=== PATIENT | female | born 1975 | race Caucasian/White ===

== ENCOUNTER 2017-10-01 22:44 | Emergency (ER) | payer OTHER ==
[2017-10-01 22:56] VITALS: BP 120/83; BMI 19.3
--- NOTE | 2017-10-01 23:05 | DR.GENAD ---
HPI - PCP Primary Care Physician: NFD - Complaint/Symptoms Chief Complaint Doctors Comments: Patient presents with complaint of LUQ pain tonight worse tonight than previous days. Denies trauma Chief Complaint:: LEFT SIDE PAIN WORSE TONIGHT BUT LUMP HAS BEEN THERE BUT POKING OUT MORE TONIGHT. - Source History Provided: Patient - Mode of Arrival Mode of Arrival: Ambulatory - Timing Onset of Chief Complaint: 10/01/17 PMH - PMH Past Medical History: Yes Past Medical History Comment: HEP C Past Surgical History: Yes Past Surgical History Comment: TUBAL LIGATION - Family History History of Family Medical Conditions: Yes Family Medical History: Hypertension Family Medical History Comment: BROTHER- STROKE - Social History Does patient currently use any type of tobacco product: Yes Have you used tobacco products in the last 12 months: Yes Type of Tobacco Use: Cigarettes Does any household member use tobacco: No Alcohol Use: None Do you use any recreational Drugs:: No Lives With: Family Lives Where: Home - infectious screening In the last 2 months have you had wt loss of >10#?: NO Have you had fever, night sweats or hemotysis?: No Have you traveled outside the country in the last 6 months?: No Isolation: Standard ROS - Review of Systems Eyes: No Symptoms Reported ENTM: No Symptoms Reported Respiratoy: No Symptoms Reported Cardiovascular: No Symptoms Reported Gastrointestinal/Abdominal: No Symptoms Reported Genitourinary: No Symptoms Reported Neurological: No Symptoms Reported Musculoskeletal: No Symptoms Reported Integumentary: No Symptoms Reported Hematologic/Lymphatic: No Symptoms Reported Endocrine: No Symptoms Reported Psychiatric: No Symptoms Reported All Other Systems: Reviewed and Negative PE - Vital Signs Vitals: Temperature 98.3 F Pulse Rate 86 Respiratory Rate 20 Blood Pressure 120/83 O2 Sat by Pulse Oximetry 99 - General Limitations: No Limitations General Appearance: Alert, In No Apparent Distress - Head Head Exam: Normal Inspection, Atraumatic - Eyes Eye exam: Normal Appearance, PERRL, EOMI - ENT ENT Exam: Normal Exam External Ear Exam: Normal External Inspection TM/Canal Exam: Bilateral Normal Nose Exam: Normal Nose Exam Mouth Exam: Normal Inspection Throat Exam: Normal Inspection - Neck Neck Exam: Normal Inspection, Full ROM - Chest Chest Inspection: Normal Inspection, Symmetric Chest Wall Rise - Respiratory Respiratory Exam: Normal Lung Sounds Bilat, Accessory Muscle Use Respiratory Exam: Bilateral Clear to Auscultation - Cardiovascular Cardiovascular Exam: Regular Rate, Normal Rhythm - Abdominal Exam Abdominal Exam: Normal Inspection Abdominal Tenderness: LUQ - Extremities Extremities Exam: Normal Inspection, Full ROM - Back Back Exam: Normal Inspection, Full ROM - Neurologic Neurological Exam: Alert, Oriented X3, CN II-XII Intact - Psychiatric Psychiatric Exam: Normal Affect - Skin Skin Exam: Warm, Dry, Intact Course - Reevaluation 1st: Unchanged ROR - Labs Reviewed Result Diagrams: 10/01/17 01:00 10/01/17 01:00 Laboratory: WBC 10.7 X10^3/uL (3.6-10.0) H 10/01/17 01:00 RBC 4.40 X10^6/uL (3.5-5.4) 10/01/17 01:00 Hgb 12.8 g/dL (12.0-16.0) 10/01/17 01:00 Hct 37.7 % (36.0-47.0) 10/01/17 01:00 MCV 85.5 fL (80.0-100.0) 10/01/17 01:00 MCH 29.0 pg (27.0-34.0) 10/01/17 01:00 MCHC 33.9 g/dL (33.0-35.0) 10/01/17 01:00 RDW 14.6 % (11.6-16.5) 10/01/17 01:00 Plt Count 233 X10^3/uL (150.0-450.0) 10/01/17 01:00 MPV 7.9 fL (7.4-11.0) 10/01/17 01:00 Neut % (Auto) 64.7 % (42.0-75.0) 10/01/17 01:00 Lymph % (Auto) 27.0 % (21.0-51.0) 10/01/17 01:00 Boyle % (Auto) 5.4 % (0.0-13.0) 10/01/17 01:00 Eos % (Auto) 2.4 % (0.9-2.9) 10/01/17 01:00 Baso % (Auto) 0.5 % (0.2-1.0) 10/01/17 01:00 Neut # (Auto) 6.9 x10^3/uL (2.2-4.8) H 10/01/17 01:00 Lymph # (Auto) 2.9 X10^3/uL (1.3-2.9) 10/01/17 01:00 Boyle # (Auto) 0.6 x10^3/uL (0.3-0.8) 10/01/17 01:00 Eos # (Auto) 0.3 x10^3/uL (0.0-0.2) H 10/01/17 01:00 Baso # (Auto) 0.1 X10^3/uL (0.0-0.1) 10/01/17 01:00 Absolute Nucleated RBC 0.0 /100WBC 10/01/17 01:00 Sodium 139 mmol/L (136-145) 10/01/17 01:00 Corrected Sodium TNP 10/01/17 01:00 Potassium 4.4 mmol/L (3.5-5.1) 10/01/17 01:00 Chloride 103 mmol/L (98-107) 10/01/17 01:00 Carbon Dioxide 24.7 mmol/L (21-32) 10/01/17 01:00 BUN 13 mg/dL (7-18) 10/01/17 01:00 Creatinine 0.93 mg/dL (0.55-1.02) 10/01/17 01:00 Est GFR (MDRD) Af Amer > 60 (>60) 10/01/17 01:00 Est GFR (MDRD) Non-Af > 60 (>60) 10/01/17 01:00 Glucose 83 mg/dL (65-99) 10/01/17 01:00 Calcium 8.6 mg/dL (8.5-10.1) 10/01/17 01:00 C-Reactive Protein 1.00 mg/L (0-3.0) 10/01/17 01:00 - XRAY XRAY Interpreted by: Radiologist (CT Abd/pel: There is moderate stool in the colon, Sclerosis of the SI joints and symphysis pubis. This could reflect inflammatory anthropathy.) - Diagnosis Discharge Problem: sclerosis of the SI joint, sclerosis of symphysis pubis Constipation Qualifiers: Constipation type: slow transit constipation Qualified Code(s): K59.01 - Slow transit constipation - Discharge Plan Condition: Stable - Follow ups/Referrals Follow ups/Referrals: NFD,None [Primary Care Provider] - 3 days - Instructions
[2017-10-02 00:56] LABS: BLOOD UREA NITROGEN 13 mg/dL (7-18); CALCIUM 8.6 mg/dL (8.5-10.1); CARBON DIOXIDE 24.7 mmol/L (21-32); CHLORIDE 103 mmol/L (98-107); CREATININE 0.93 mg/dL (0.55-1.02); SODIUM 139 mmol/L (136-145); eGFR BLACK RACES > 60 (>60); eGFR NON BLACK RACES > 60 (>60)
[2017-10-02 01:06] LABS: BASOPHILS # (AUTO) 0.1 X10^3/uL (0.0-0.1); BASOPHILS % (AUTO) 0.5 % (0.2-1.0); EOSINOPHILS # (AUTO) 0.3 x10^3/uL (0.0-0.2); EOSINOPHILS % (AUTO) 2.4 % (0.9-2.9); HEMATOCRIT 37.7 % (36.0-47.0); HEMOGLOBIN 12.8 g/dL (12.0-16.0); LYMPHOCYTES # (AUTO) 2.9 X10^3/uL (1.3-2.9); MEAN CORPUSCULAR HGB CONC 33.9 g/dL (33.0-35.0); MEAN CORPUSCULAR VOLUME 85.5 fL (80.0-100.0); MEAN PLATELET VOLUME 7.9 fL (7.4-11.0); MONOCYTES # (AUTO) 0.6 x10^3/uL (0.3-0.8); MONOCYTES % (AUTO) 5.4 % (0.0-13.0); NEUTROPHILS # (AUTO) 6.9 x10^3/uL (2.2-4.8); NEUTROPHILS % (AUTO) 64.7 % (42.0-75.0); PLATELET COUNT 233 X10^3/uL (150.0-450.0); RED CELL DISTRIBUTION WIDTH 14.6 % (11.6-16.5); WHITE BLOOD COUNT 10.7 X10^3/uL (3.6-10.0)
--- NOTE | 2017-10-02 02:11 | CT ---
CT abdomen and pelvis without contrast Indication: Abdominal pain. Technique: Helical images through the abdomen and pelvis without contrast. Coronal and sagittal refor mats provided. Findings: Review of bone windows shows advanced sclerosis with subchondral bone resorption at the humera ateral SI joints. Minimal spine facet arthropathy noted. Symphysis pubis sclerosis and subchondral Ms. origin noted. This could reflect erosions. Limited images through the lower chest show no acute abnormality. Abdomen: Limited noncontrast any imaging demonstrates no acute liver, spleen, pancreas or adrenal abn ormality. There is no hydroureteronephrosis or stone seen. The stomach small bowel are relatively nor mal with duodenal diverticulum possible on axial image 37. There is moderate stool in the colon. Appe ndix is probably normal on axial image 58. Vasculature is free of calcification. Pelvis: The urinary bladder is collapsed. The rectum is normal. Tampon is seen in the vagina. Uterus and adnexa show no acute abnormality. Lack of contrast limits sensitivity for pelvic soft tissues. Impression: 1. No acute abdominopelvic abnormality, within the limits of a noncontrast study 2. Sclerosis of the SI joints and symphysis pubis. This could reflect inflammatory arthropathy. Reported By:
[2017-10-02] MEDS ORDERED: CITROMA PO ONE (02:22)
[2017-10-02] MEDS ORDERED: CITROMA ONE (02:23)
== END 2017-10-02 02:30 | disposition home or self-care (01) ==
LOC: ER 22:59
DX: M85.30 Osteitis condensans, unspecified site (principal); M46.1 Sacroiliitis, not elsewhere classified; K59.01 Slow transit constipation; R10.12 Left upper quadrant pain
CPT/HCPCS: 36415; 74150; 80048; 85025; 86140; 99283; A4222